=== PATIENT | male | born 1985 | race Hispanic/Latino ===

== ENCOUNTER 2023-02-10 13:29 | Emergency (ER) | payer SELFPAY ==
--- NOTE | 2023-02-10 14:58 | RAD REPORT ---
EXAM DESCRIPTION: RAD - Hand Right 3 View - 02/10/2023 2:35 pm CLINICAL HISTORY: injury, blunt trauma COMPARISON: No comparisons TECHNIQUE: Right hand, 3 views. FINDINGS: No fracture is identified. There is no dislocation or periosteal reaction noted. No foreign body or other soft tissue abnormalit y. IMPRESSION: Negative right hand examination.
[2023-02-10] MEDS ORDERED: HYDROCODONE/APAP 5/325 MG TAB ONE (15:16)
--- NOTE | 2023-02-10 15:23 | EDPHYS ---
Physician Documentation [facility] Name: Sam Blankenship Age: 37 yrs Sex: Male : 1985 Arrival Date: 02/10/2023 Time: 13:29 Bed DIS1 Private MD: ED Physician Martell Galarza HPI: 02/10 14:12 This 37 yrs old Male presents to ER via Unassigned with complaints of Hand jmm Injury. 14:12 The patient or guardian reports injury, pain. Onset: The symptoms/episode jmm began/occurred acutely, just prior to arrival. Patient states his hand was hit with a crowbar. Denies other injury. . Historical: - Allergies: 14:15 No Known Allergies; nj1 - PMHx: 14:16 Asthma; nj1 - PSHx: 14:15 None; nj1 - Immunization history:: Client reports receiving the 2nd dose of the Covid vaccine. - Social history:: Smoking status: Patient reports the use of cigarette tobacco products, denies chronic smoking, but will smoke occasionally. ROS: 14:12 Constitutional: Negative for fever, chills, and weight loss, Cardiovascular: Negative jmm for chest pain, palpitations, and edema, Respiratory: Negative for shortness of breath, cough, wheezing, and pleuritic chest pain. 14:12 MS/extremity: Positive for injury or acute deformity. 14:12 All other systems are negative. Exam: 14:12 Constitutional: This is a well developed, well nourished patient who is awake, alert, jmm and in no acute distress. Head/Face: atraumatic. Eyes: EOMI, no conjunctival erythema appreciated ENT: Moist Mucus Membranes Neck: Trachea midline, Supple Chest/axilla: Normal chest wall appearance and motion. Cardiovascular: Regular rate and rhythm. No edema appreciated Respiratory: Normal respirations, no respiratory distress appreciated Abdomen/GI: Non distended Back: Normal ROM Skin: General appearance color normal 14:12 Musculoskeletal/extremity: dorsum of the right hand is diffusely ttp, compartments are soft, full radial pulse, NVI. 14:12 Skin: Appearance: Color: normal in color. 14:12 Neuro: Orientation: is normal, Mentation: is normal, Memory: is normal. 14:12 Psych: Behavior/mood is pleasant, cooperative. Vital Signs: 14:09 BP 158 / 96; Pulse 73; Resp 18; Temp 99.2; Pulse Ox 100% ; Weight 81.65 kg; Height 5 nj1 ft. 9 in. ; Pain 8/10; 14:09 Body Mass Index 26.58 (81.65 kg, 175.26 cm) [facility] 14:09 Pain Scale: Adult nj1 MDM: 14:10 Patient medically screened. [facility] 02/10 14:10 Order name: Hand Right 3 View XRAY; Complete Time: 15:04 jm Administered Medications: 15:12 Drug: [place] PO 5 mg-325 mg 1 tabs Route: PO; aa5 Disposition: 15:48 Co-signature as Attending Physician, Martell Galarza MD I reviewed the patient's care rt provided by the Advanced Practice Provider and agree with the diagnosis and treatment plan. Disposition Summary: 02/10/23 15:22 Discharge Ordered Location: Home [facility] Condition: Stable jm Diagnosis - Contusion of right hand [facility] Followup: [facility] - With: Private Physician - When: 2 - 3 days - Reason: Recheck today's complaints, Continuance of care, Re-evaluation by your physician Discharge Instructions: - Discharge Summary Sheet [facility] - Hand Contusion [facility] Forms: - Medication Reconciliation Form [facility] - Thank You Letter [facility] - Antibiotic Education [facility] - Prescription Opioid Use [facility] Prescriptions: - Diclofenac Sodium 75 mg Oral Tablet Sustained Release - take 1 tablet by ORAL route 2 times per day; 30 tablet; Refills: 0, Product jm Selection Permitted Signatures: Dispatcher [employer] EDMS Faheem Castillo PA PA jmm Calderon, Audri, RN RN aa5 Martell Galarza MD MD rt Felicia Lucas RN RN nj1 Corrections: (The following items were deleted from the chart) 14:16 14:15 PMHx: None; [facility] nj
--- NOTE | 2023-02-10 15:23 | ER ---
Nurse's Notes [facility] Name: Sam Blankenship Age: 37 yrs Sex: Male : 1985 Arrival Date: 02/10/2023 Time: 13:29 Bed DIS1 Private MD: Diagnosis: Contusion of right hand Presentation: 02/10 14:09 Chief complaint: Patient states: Was hitting a bar with a hammer and suddenly the bar nj1 came back and hit my right hand. It wasn't really hurting at the beginning but it is now. Having trouble moving fingers. Coronavirus screen: Vaccine status: Patient reports receiving the 2nd dose of the covid vaccine. Ebola Screen: Patient denies travel to an Ebola-affected area in the 21 days before illness onset. Initial Sepsis Screen: Does the patient meet any 2 criteria? No. Patient's initial sepsis screen is negative. Does the patient have a suspected source of infection? No. Patient's initial sepsis screen is negative. Risk Assessment: Do you want to hurt yourself or someone else? Patient reports no desire to harm self or others. Onset of symptoms was February 10, 2023. 14:09 Method Of Arrival: Ambulatory [facility] 14:09 Acuity: PAT 3 nj1 Historical: - Allergies: 14:15 No Known Allergies; nj1 - PMHx: 14:16 Asthma; nj1 - PSHx: 14:15 None; nj1 - Immunization history:: Client reports receiving the 2nd dose of the Covid vaccine. - Social history:: Smoking status: Patient reports the use of cigarette tobacco products, denies chronic smoking, but will smoke occasionally. Assessment: 15:12 Reassessment: Patient is alert, oriented x 3, equal unlabored respirations, skin aa5 warm/dry/pink. Vital Signs: 14:09 BP 158 / 96; Pulse 73; Resp 18; Temp 99.2; Pulse Ox 100% ; Weight 81.65 kg; Height 5 nj1 ft. 9 in. ; Pain 8/10; 14:09 Body Mass Index 26.58 (81.65 kg, 175.26 cm) [facility] 14:09 Pain Scale: Adult [facility] ED Course: 13:34 Patient arrived in ED. am2 13:56 Faheem Castillo PA is PHCP. [facility] 13:56 Martell Galarza MD is Attending Physician. [facility] 14:15 Triage completed. nj1 14:16 Arm band placed on left wrist. nj1 14:37 Hand Right 3 View XRAY In Process Unspecified. EDMS Administered Medications: 15:12 Drug: [place] PO 5 mg-325 mg 1 tabs Route: PO; aa5 Outcome: 15:22 Discharge ordered by . [facility] 15:32 Patient left the ED. aa5 Signatures: Dispatcher [employer] EDMS Faheem Castillo PA PA Erma Oliver, RN RN aa5 Nataly Gómez am2 Felicia Lucas, RN RN nj1 Corrections: (The following items were deleted from the chart) 14:16 14:15 PMHx: None; nj1 nj1
[2023-02-10 15:36] VITALS: BP 158/96; TEMP 99.2; O2SAT 100
== END 2023-02-10 15:32 | disposition home or self-care (01) ==
LOC: ER 13:29
DX: S60.221A Contusion of right hand, initial encounter (principal)